=== PATIENT | female | born 1995 | race Caucasian/White ===

== ENCOUNTER 2021-10-14 23:07 | Emergency (ER) | payer OTHER ==
[~2021-10-14] VITALS: Ht 154.9 cm; Wt 68.5 kg
--- NOTE | 2021-10-15 00:54 | NUR ---
PATIENT BIBS C/O RIGHT KNEE PAIN AFTER BUMPING INTO A CART. PATIENT HAS HX OF RIGHT TORN ACL. PATIENT ALERT AND ORIENTED X3. AMBULATORY WITH NON LABORED BREATHING.
[2021-10-15 01:14] VITALS: BP 122/80
--- NOTE | 2021-10-15 01:14 | NUR ---
Patient discharged to home in stable condition. Written and verbal after care instructions given. Patient verbalizes understanding of instruction.
== END 2021-10-15 01:18 | disposition home or self-care (01) ==
LOC: ER 23:16
DX: S83.8X1A Sprain of other specified parts of right knee, initial encounter (principal); Z60.2 Problems related to living alone; W22.8XXA Striking against or struck by other objects, initial encounter; Y93.89 Activity, other specified; Y92.89 Other specified places as the place of occurrence of the external cause; Y99.0 Civilian activity done for income or pay
CPT/HCPCS: 73564-TC